=== PATIENT | male | born 1975 ===

== ENCOUNTER 2020-10-09 10:29 | Outpatient (CLI) | payer OTHER ==
[2020-10-09] MEDS ORDERED: OMNIPAQUE 350 MG/ML, 150 ML BOTTLE ONE (16:11)
== END 2020-10-09 23:59 | disposition home or self-care (01) ==
LOC: CFH 10:29
PROVIDERS: ATTEND Family Medicine
DX: K76.0 Fatty (change of) liver, not elsewhere classified (principal); K82.0 Obstruction of gallbladder; R31.9 Hematuria, unspecified; M47.817 Spondylosis without myelopathy or radiculopathy, lumbosacral region
CPT/HCPCS: 74178; Q9967